=== PATIENT | female | born 1970 | race Two or more races ===

== ENCOUNTER 2020-04-14 20:42 | Emergency (ER) | payer MEDICAID, MEDICARE ==
[~2020-04-14] VITALS: Ht 165.1 cm; Wt 61.2 kg
--- NOTE | 2020-04-14 20:52 | NUR ---
PT BIBRA 878 FROM HOME C/O N/V X 4 HOURS. PT AAOX4, RESPIRATIONS EVEN AND UNLABORED ON RA W/ NAD NOTED. PT RECEIVED EPIDURAL AT [facility] FOR BULGING DISC. PT CONNECTED TO THE MONITOR AND POX.
--- NOTE | 2020-04-14 20:55 | NUR ---
FUELER DEGRASSE AT BEDSIDE FOR EVAL
[2020-04-14] MEDS ORDERED: diphenhydrAMINE HCL 50 MG/ML VIAL ONE (21:04)
[2020-04-14] MEDS ORDERED: METOCLOPRAMIDE HCL 10 MG/2 ML VIAL ONE (21:04)
[2020-04-14] MEDS ORDERED: diphenhydrAMINE HCL 50 MG/ML VIAL IV ONE (21:30)
[2020-04-14] MEDS ORDERED: IV NS 0.9% 1,000 ML IV ONE (21:30)
[2020-04-14] MEDS ORDERED: METOCLOPRAMIDE HCL 10 MG/2 ML VIAL IV ONE (21:30)
[2020-04-14] MEDS ORDERED: IV NS 0.9% 250 ML BAG IV ONE (21:30)
--- NOTE | 2020-04-14 22:32 | NUR ---
Patient discharged to home in stable condition. Written and verbal after care instructions given. Patient verbalizes understanding of instruction.IV removed. Catheter intact and site benign. Pressure and 4x4 applied to site. No bleeding noted.pt. ambulatory with a steady gait
[2020-04-14 22:33] VITALS: BP 110/76
== END 2020-04-14 22:34 | disposition home or self-care (01) ==
LOC: ER 20:46
DX: G97.1 Other reaction to spinal and lumbar puncture (principal); R51.9 Headache, unspecified; R11.2 Nausea with vomiting, unspecified; Z88.2 Allergy status to sulfonamides; Z88.6 Allergy status to analgesic agent; Z91.040 Latex allergy status; Y92.89 Other specified places as the place of occurrence of the external cause
CPT/HCPCS: 96361; 96374; 96375; 99284; J1200; J2765; J7050